=== PATIENT | female | born 1985 | race Caucasian/White ===

== ENCOUNTER 2020-09-12 15:31 | Day surgery (SDC) | payer BC, SELFPAY ==
[2020-09-12 16:27] VITALS: BMI 42.7
[2020-09-12] MEDS ORDERED: hydrALAZINE 20 MG/ML VIAL SLOW IVP PRN (17:07)
--- NOTE | 2020-09-12 17:47 | PDOC.FPROB ---
FMR OB H&P: HPI - History of Present Illness Chief Complaint: Elevated BP Indentification: 35yo at 35.1wks History of Present Illness: Hina was seen in clinic today for testing and found to have a SBP in the 140s x2. NST was reactive and BPP score 8/8. She is receiving testing d/t AMA, pregestational prediabetes and now A1GDM, and obesity. She denies a hx of HTN prior to . She endorses b/l LE and UE edema. She denies LAZO, vision changes, RUQ pain, dyspnea/SOB, CP. Primary Care Physician: JO-ANN - Dr. 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 Last night, someone they know was found on the property. - Family History Family History: Endorses fam hx of HTN. FMR OB H&P: Medications - Current Home Medications: Medication Instructions Recorded Confirmed Type Aspirin [Aspirin EC] 81 mg PO DAILY 09/12/20 09/12/20 History Pnv No.95/Ferrous Fum/Folic AC 1 tablet PO DAILY 09/12/20 09/12/20 History [ Tablet] Allergies/Adverse Reactions: Allergies Allergy/AdvReac Type Severity Reaction Status Date / Time No Known Allergies Allergy Verified 09/12/20 16:20 FMR OB H&P: ROS - Review of Systems General: denies: fever/chills Eyes: denies: vision changes, double vision, scotomas, floaters ENT: denies: nasal congestion, sore throat Cardiovascular: denies: chest pain Respiratory: denies: cough, congestion Gastrointestinal: denies: abdominal pain, nausea, vomiting, diarrhea Genitourinary (Female): denies: dysuria, vaginal discharge, vaginal bleeding, contractions, vaginal pressure Musculoskeletal: reports: swelling (UE and LE b/l) Neurologic: denies: headache Hematologic/Lymphatic: denies: prolonged or excessive bleeding FMR OB H&P: Vital Signs - Heart Tones Baseline: 140 Variability: moderate Acceleration: present Deceleration: absent [place] contractions every: N/A FMR OB H&P: Physical Exam - Physical Exam General: NAD, awake, alert and oriented HEENT: normocephalic and atraumatic, EOMI, grossly normal vision, grossly normal hearing Neck: supple, FROM Chest: non-tender to palpation Heart: RRR, normal S1/S2, no murmurs/rubs/gallops, pulses present (2+ dp b/l), other (Non-pitting edema of b/l LE and UE) General: CTAB, no respiratory distress, good air movement Abdomen: soft, gravid, non-tender, bowel sound present Musculoskeletal: pulses present, FROM in all four extremities Neurological: no focal deficit Skin: no rash Lymphatic: no purpura, no petechia Psychiatric: intact recent and remote memory, good judgement and insight, normal mood and affect - Pelvic Exam Membranes: Intact FMR OB H&P: A/P Disposition: This is a 35yo at 35.1wks who was sent from clinic for two elevated SBP in the 140s. Elevated Blood Pressures - SBP 140s x2 at clinic - On arrival, BPs 150-155/81-107. Continue monitoring BPs prn Hydralazine if severe range - Pre-e labs ordered - Continuous FM. Strip reassuring with baseline 140, moderate variability, accels, no decels - B/l UE and LE edema Monitor for sxs sIUP - at 35.1wks - testing for reasons listed below Today, NST reactive and BPP 8/8 - Continuous FM A1GDM - A1c 5.8 AMA - 35yo Obesity Discussion: Date/Time: 09/12/201746 This H&P was discussed with Dr. Rody Fisher and Dr. Judie Horan who agree with the above documentation and plan. Addendum - Attending - Attending Attestation Date/Time: 09/12/20 408 I personally evaluated the patient and discussed the management with resident team I agree with the History, Examination, Assessment and Plan documented above with any addition or exceptions noted below. Obs for at least 4 hours. Monitor BP q 15 mins. Remains asymptomatic. Labs pending. heart tones reactive. BPP 8/8 today. ABrayMD
[2020-09-12 17:57] LABS: #Basophils 0.1 thou/uL (0.0-0.2); #Eosinphils 0.1 thou/uL (0.0-0.7); #Lymphocytes 2.8 thou/uL (1.20-3.40); #Monocytes 0.5 thou/uL (0.11-0.59); #Neutrophils 8.5 thou/uL (1.40-6.50); %Basophils 0.6 % (0.0-1.0); %Eosinophils 0.4 % (0.0-10.0); %Lymphocytes 23.2 % (21.0-51.0); %Monocytes 4.4 % (0.0-10.0); %Neutrophils 71.3 % (42.0-75.0); Hemoglobin 11.7 g/dL (12.0-16.0); Mean Corpuscular HGB CONC 33.6 g/dL (32.0-36.0); Mean Corpuscular Hemoglobin 30.7 pg (27.0-31.0); Mean Corpuscular Volume 91.5 fL (78.0-98.0); Mean Platelet Volume 9.5 fL (7.4-10.4); Platelet Count 219 thou/uL (130-400); RBC Distribution Width 12.5 % (11.5-14.5); Red Blood Cell (RBC) Count 3.82 mill/uL (4.20-5.40); White Blood Cell (WBC) Count 11.9 thou/uL (4.8-10.8)
[2020-09-12 18:18] LABS: ALT (SGPT) 19 U/L (8-55); AST (SGOT) 19 U/L (5-34); Alkaline Phosphatase 113 U/L (40-110); Anion Gap 14 mmol/L (10-20); BUN (Urea Nitrogen) 8 mg/dL (7.0-18.7); Bilirubin, Total 0.2 mg/dL (0.2-1.2); Calc. Creatinine Clearance 189 mL/min (70-130); Calcium 8.8 mg/dL (7.8-10.44); Carbon Dioxide 18 mmol/L (22-29); Chloride 107 mmol/L (98-107); Globulin 3.2 g/dL (2.4-3.5); Glucose 78 mg/dL (70-105); Protein, Total 6.2 g/dL (6.0-8.3); Sodium 135 mmol/L (136-145)
[2020-09-12 18:37] LABS: Creatinine, Urine 201.46 mg/dL (47-110)
--- NOTE | 2020-09-12 21:07 | PDOC.BPN ---
<Hannah Mariee - Last Filed: 09/12/20 21:04> - Brief Progress Note Encounter Date: 09/12/20 Encounter Time: 20:00 Patient's pre-E labs WNL. Patient diagnosed with gHTN. Patient discharged. Education given about diagnosis and L&D precautions given. If BP > 160/110, come to L&D. Pre-E education provided, encouraged patient to be aware of developing symptoms. Take BP at home TID. Will need to be followed up weekly at [facility] for weekly labs, weekly sonos, and weekly visits. All questions answered. Plan discussed with Dr. Horan, attending. <Judie Horan - Last Filed: 09/13/20 01:51> - Brief Progress Note Attending Note: Risk and complications discussed. Patient to call first thing in the morning to schedule follow up later this week. Will need FLM steroids if appears deliver needed prior to 37 wks. Trend weekly labs. Consider follow up growth with next weeks testing. Patient to get BP cuff and monitor TID at home. Will need delivery at 37 wks. Ramesh
== END 2020-09-12 21:05 | disposition home or self-care (01) ==
LOC: L&D/OP 15:31
PROVIDERS: ATTEND Student in an Organized Health Care Education/Training Program
DX: O99.891 Other specified diseases and conditions complicating pregnancy (principal); R03.0 Elevated blood-pressure reading, without diagnosis of hypertension; O24.410 Gestational diabetes mellitus in pregnancy, diet controlled; O99.213 Obesity complicating pregnancy, third trimester; E66.9 Obesity, unspecified; O09.513 Supervision of elderly primigravida, third trimester; O99.333 Smoking (tobacco) complicating pregnancy, third trimester; F17.290 Nicotine dependence, other tobacco product, uncomplicated; Z3A.35 35 weeks gestation of pregnancy; Z79.82 Long term (current) use of aspirin
CPT/HCPCS: 36415; 80053; 82570; 84156; 85025

== ENCOUNTER 2020-09-19 15:24 | Inpatient (IN) | payer OTHER, SELFPAY ==
[~2020-09-19 15:24] MED LIST: ePHEDrine 50 MG/ML VIAL ONE
--- NOTE | 2020-09-19 15:34 | PDOC.FPRHP ---
- History of Present Illness Chief Complaint: elevated BP History of Present Illness: 35yo @ 36.1 wks by 10.6wk lisa presents from clinic for evaluation of elevated BP. In clinic SBP 158, 161, 162. - Allergies/Adverse Reactions Allergies Allergy/AdvReac Type Severity Reaction Status Date / Time No Known Allergies Allergy Verified 09/12/20 16:20 - Home Medications Medication Instructions Recorded Confirmed Type Aspirin [Aspirin EC] 81 mg PO DAILY 09/12/20 09/12/20 History Pnv No.95/Ferrous Fum/Folic AC 1 tablet PO DAILY 09/12/20 09/12/20 History [ Tablet] - History PMHx: PSHx: FHx: Social: - Vital signs BP: [] HR: [] RR: [] Tmax: [] Pox: []% on [] Wt: [] FMR H&P: Upper Level - Plan Date/Time: 09/19/20 1529 I, [], have evaluated this patient and agree with findings/plan as outlined by architecture intern resident. Pertinent changes/additions are listed here.
--- NOTE | 2020-09-19 15:36 | PDOC.FPROB ---
FMR OB H&P: HPI - History of Present Illness Chief Complaint: Elevated BP History of Present Illness: 35yo @ 36.1 wks by 10.6wk lisa presents from clinic for evaluation of elevated BP. SBPs in clinic: 158, 161, 162. Pt has been checking her BP at home and they are normally systolic in 140s. Currently asymptomatic. She is taking her PNV and aspirin as prescribed. Has a history of non-compliance and has missed some of her routine appointments and lab work. +FM, Denies LOF, vaginal bleeding, LAZO, vision change, abdominal pain, ctx. C/o swelling of her feet. Primary Care Physician: LENA Washington FMR OB H&P: Current - Care : 1 Para: 0 Gestational age: 36.1 Due date: 10/16/20 Dating Criteria: 10.6 wk lisa Course/Complications: gHTN, A1GDM, AMA, obesity - OB Labs Blood type: O RH: positive Antibody Screen: negative HIV: negative RPR: unknown HepBsAg: negative Rubella: immune Gonorrhea: negative Chlamydia: negative A1c: 5.8 H&H: 11.7/34.9 on . 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 NILM with negative HR-HPV - Surgical History Sx History: tonsillectomy, adenoidectomy - Social History Social History: vapes nicotine, no alcohol or drugs - Family History Family History: HTN FMR OB H&P: Medications - Current Home Medications: Medication Instructions Recorded Confirmed Type Aspirin [Aspirin EC] 81 mg PO DAILY 09/12/20 09/19/20 History Pnv No.95/Ferrous Fum/Folic AC 1 tablet PO DAILY 09/12/20 09/19/20 History [ Tablet] Allergies/Adverse Reactions: Allergies Allergy/AdvReac Type Severity Reaction Status Date / Time No Known Allergies Allergy Verified 09/19/20 15:50 FMR OB H&P: ROS - Review of Systems General: denies: fever/chills Eyes: denies: vision changes ENT: denies: nasal congestion Cardiovascular: reports: palpitation, edema. denies: chest pain Respiratory: denies: cough, congestion, shortness of breath Gastrointestinal: denies: abdominal pain, nausea, vomiting Genitourinary (Female): denies: dysuria, vaginal bleeding, contractions Musculoskeletal: denies: pain Neurologic: denies: headache Integumentary: denies: rash Endocrine: denies: polyuria Hematologic/Lymphatic: denies: prolonged or excessive bleeding FMR OB H&P: Vital Signs - Maternal Vital signs: BP 140/76, 139/69, HR 70, 61 - Heart Tones Baseline: 140 Variability: moderate Acceleration: present Deceleration: absent Category: category 1 FMR OB H&P: Physical Exam - Physical Exam General: NAD, awake, alert and oriented HEENT: normocephalic and atraumatic, no scleral icterus, grossly normal vision, grossly normal hearing Neck: supple, FROM Heart: RRR, normal S1/S2 General: CTAB, no respiratory distress Abdomen: soft, gravid, non-tender Musculoskeletal: pulses present, no atrophy Neurological: DTR +2, no focal deficit Skin: no rash, no jaundice Lymphatic: no unusual bruising or bleeding Psychiatric: intact recent and remote memory, good judgement and insight, normal mood and affect FMR OB H&P: A/P Discussion: Date/Time: 09/19/20 6494 This is a 35yo at 36.1wks who was sent from clinic for elevated BP #gHTN r/o pre-E - SBP 158, 161 in clinic - On arrival, BP 140/76, 139/69, asymptomatic - pending Urine Pr/Cr, CBC, CMP - pending US: BPP, growth - Continue monitoring BPs, if no severe range or no severe features, will discharge home - has mIOL scheduled for 09/25 sIUP - FHT: Cat 1 - pending GBS - Continuous FM A1GDM - A1c 5.8 - FBG at home 82-98 AMA, Obesity - aware This H&P was discussed with Dr. Ibrahim and Dr. Fernandes who agree with the above documentation and plan. Addendum - Attending - Attending Attestation Date/Time: 09/20/20 8363 I personally evaluated the patient and discussed the management with the team. I agree with the History, Examination, Assessment and Plan documented above with any addition or exceptions noted below. No severe symptoms, feeling good. DTRs 2+, no clonus. Await monitoring for BP's and induce if severe pressures. Complete preE workup.
[2020-09-19 15:53] VITALS: BMI 42.3
[2020-09-19] MEDS ORDERED: hydrALAZINE 20 MG/ML VIAL SLOW IVP PRN (16:21)
--- NOTE | 2020-09-19 17:02 | ULT ---
LIMITED OBSTETRICAL ULTRASOUND FOR BIOPHYSICAL PROFILE INDICATION: Biophysical profile and growth TECHNIQUE: Grayscale, M-mode Doppler, color Doppler and spectral Doppler images were obtained. Biophy sical profile was submitted by the health information technician. Imaging is focused on the clinical indication. COMPARISON: None GESTATION: Number of gestations: Single. Presentation: Cephalic. heart rate: 158 bpm. Placental location: Posterior and right lateral wall Previa: Not evaluated Cervical length: Not well seen STEPHANIE: 10.5 cm. Biophysical profile: tone: 2 out of 2. breathin out of 2 movements: 2 out of 2 Amniotic fluid level: 2 out of 2 The biparietal diameter measured 9.19 cm giving estimated gestational age of 37 weeks 2 days. (87th p ercentile). The head circumference was 32.66 cm giving estimated gestational age of 37 weeks and 0 days. (42nd pe rcentile). The abdominal circumference is 31.16 cm giving estimated gestational age of 35 weeks and 1 day (30th percentile) The femoral length was 7.03 cm giving estimated gestational age of 36 weeks and 0 days (43rd percenti le) Estimated weight is 2768 g (42nd percentile) The estimated gestational age by ultrasound is 36 weeks and 3 days estimated due date April 13, 2021. The clinical age is 36 weeks and 1 day with estimated October 16, 2020. The maternal anatomy was not assessed. The uterus and adnexa were not evaluated. IMPRESSION: 1. Biophysical profile of 8 out of 8. 2. Size and dates as above.
[2020-09-19 17:29] LABS: #Basophils 0.1 thou/uL (0.0-0.2); #Lymphocytes 2.8 thou/uL (1.20-3.40); #Monocytes 0.5 thou/uL (0.11-0.59); #Neutrophils 7.7 thou/uL (1.40-6.50); %Basophils 0.7 % (0.0-1.0); %Eosinophils 0.3 % (0.0-10.0); %Lymphocytes 25.3 % (21.0-51.0); %Monocytes 4.5 % (0.0-10.0); %Neutrophils 69.2 % (42.0-75.0); Hemoglobin 12.6 g/dL (12.0-16.0); Mean Corpuscular HGB CONC 33.8 g/dL (32.0-36.0); Mean Corpuscular Hemoglobin 30.4 pg (27.0-31.0); Mean Corpuscular Volume 89.7 fL (78.0-98.0); Mean Platelet Volume 9.7 fL (7.4-10.4); Platelet Count 222 thou/uL (130-400); RBC Distribution Width 12.3 % (11.5-14.5); Red Blood Cell (RBC) Count 4.16 mill/uL (4.20-5.40); White Blood Cell (WBC) Count 11.2 thou/uL (4.8-10.8)
[2020-09-19 17:54] LABS: ALT (SGPT) 16 U/L (8-55); AST (SGOT) 15 U/L (5-34); Albumin 3.2 g/dL (3.5-5.0); Alkaline Phosphatase 134 U/L (40-110); Anion Gap 15 mmol/L (10-20); BUN (Urea Nitrogen) 7 mg/dL (7.0-18.7); Bilirubin, Total 0.3 mg/dL (0.2-1.2); Calc. Creatinine Clearance 177 mL/min (70-130); Calcium 8.5 mg/dL (7.8-10.44); Carbon Dioxide 19 mmol/L (22-29); Chloride 106 mmol/L (98-107); Globulin 3.2 g/dL (2.4-3.5); Glucose 95 mg/dL (70-105); Potassium 3.8 mmol/L (3.5-5.1); Protein, Total 6.4 g/dL (6.0-8.3); Sodium 136 mmol/L (136-145)
[2020-09-19 18:00] LABS: Creatinine, Urine 335.81 mg/dL (47-110)
[2020-09-19] MEDS ORDERED: Acetaminophen 500 MG TAB PO PRN (19:26)
[2020-09-19] MEDS ORDERED: Lidocaine 1% (PF) 30 ML VIAL SC PRN (19:26)
[2020-09-19] MEDS ORDERED: NS / Oxytocin 40 units/1000ml 1,000 ML IV PRN (19:26)
[2020-09-19] MEDS ORDERED: Ondansetron PF 4 MG/2 ML Vial IVP PRN (19:26)
[2020-09-19] MEDS ORDERED: Carboprost 250 MCG/ML AMP IM PRN (19:26)
[2020-09-19] MEDS ORDERED: Promethazine HCl 25 MG/ML VIAL IM PRN (19:26)
--- NOTE | 2020-09-19 19:39 | PDOC.LDPN ---
Labor & Delivery Progress Note - Subjective Subjective: comfortable - Objective Abnormal vital signs: elevated BP: 150/91, 146/86, 160/80 General: NAD, resting SVE: closed/thick/high FHT: category 1 [place] contractions every: absent -: This is a 35yo at 36.1wks who was sent from clinic for elevated BP: sIUP @ 36.1 weeks mIOL for pre-eclampsia super-imposed on gHTN Elevated blood pressures with few severe range pressures in clinic, elevated pr/cr ratio of 0.56 today which was wnl at 0.22 one week ago. LFTs, platelets wnl. Symptoms include swelling of hands/feet unchanged over past 2 week, no new symptoms. - admit for induction of labor for pre-eclampsia - administer betamethasone for lung maturity given 36.1 weeks today - continue to monitor BP closely, tx for > 160/110 - monitor for symptoms of pre-eclampsia - SVE @ 1930 closed/thick/high; cat 1 FHT 140/mod/+accels - vertex on bedside sono - cytotec to start induction and recheck SVE 4 hours after placement GBS unknown GBS collected earlier today, will not result prior to induction. - will start GBS ppx after patient has begun to make cervical change A1GDM - A1c 5.8 - FBG at home 82-98 - will start q4hr accuchecks with induction as patient is getting steroids AMA, Obesity - aware Discussed with Dr. Ellis and Dr. Pacheco. Aliyah Horan, , PGY-1
[2020-09-19] MEDS ORDERED: Penicillin G Potassium 5 MILL.UNITS in Sodium Chloride 0.9% 100 ML IVPB SCH (20:00)
[2020-09-19] MEDS: Betamet Acet/Betamet Na Ph 30 MG/5 ML VIAL IM SCH (20:35)
[2020-09-19] MEDS: Misoprostol 100 MCG TAB VAG SCH (20:38)
[2020-09-19 21:05] LABS: Hemoglobin 12.2 g/dL (12.0-16.0); Mean Corpuscular HGB CONC 34.9 g/dL (32.0-36.0); Mean Corpuscular Hemoglobin 31.1 pg (27.0-31.0); Mean Corpuscular Volume 89.1 fL (78.0-98.0); Mean Platelet Volume 10.3 fL (7.4-10.4); Platelet Count 211 thou/uL (130-400); RBC Distribution Width 12.4 % (11.5-14.5); Red Blood Cell (RBC) Count 3.93 mill/uL (4.20-5.40); White Blood Cell (WBC) Count 11.3 thou/uL (4.8-10.8)
[2020-09-19 21:47] LABS: Syphilis Antibody Nonreactive (Nonreactive); Syphilis Antibody Index 0.05 S/CO (<1.00 Non-Reactive)
[2020-09-19] MEDS ORDERED: hydrOXYzine 10 MG TAB PO SCH (22:45)
[2020-09-19 22:57] LABS: HBSAg Index 0.15 S/CO (0-0.99); Hep B Surf Ag Non-Reactive S/CO (NonReactive)
[2020-09-20] MEDS: Misoprostol 100 MCG TAB VAG SCH ×2 (00:48→12:36)
--- NOTE | 2020-09-20 00:52 | PDOC.LDPN ---
Labor & Delivery Progress Note - Subjective Subjective: comfortable, no concerns - Objective Abnormal vital signs: intermittent elevated BP, no severe range BPs General: NAD, resting SVE: cl/th/high FHT: category 1, variability present -: This is a 35yo at 36.1wks who was sent from clinic for elevated BP: sIUP @ 36.2 weeks mIOL for pre-eclampsia super-imposed on gHTN Elevated blood pressures with few severe range pressures in clinic, elevated pr/cr ratio of 0.56 today which was wnl at 0.22 one week ago. LFTs, platelets wnl. Symptoms include swelling of hands/feet unchanged over past 2 week, no new symptoms. - admit for induction of labor for pre-eclampsia - vertex on bedside sono - administer betamethasone for lung maturity given 36.1 weeks at induction time - continue to monitor BP closely, tx for > 160/110 - monitor for symptoms of pre-eclampsia - SVE @ 1930 closed/thick/high; cat 1 FHT 140/mod/+accels - cytotec #1 @ 5 - SVE @ 0045 cl/th/h/posterior/moderately firm, Jasso increased 0 to 1; cat 1 FHT 155/mod/+accels; infrequent ctx, cytotec #2 placed GBS unknown GBS collected earlier today, will not result prior to induction. - will start GBS ppx after patient has begun to make cervical change A1GDM - A1c 5.8 - FBG at home 82-98 - will start q4hr accuchecks with induction as patient is getting steroids AMA, Obesity - aware PLAN: No severe range BP over past 4 hours. Cat [address] cytotec #2. Repeat SVE in 3-4 hours. Continue BP and FHT monitoring. Defer abx at this time, no significant cervical change. Discussed with Dr. Ellis and Dr. Pacheco. Aliyah Horan, DO, PGY-1
--- NOTE | 2020-09-20 05:07 | PDOC.LDPN ---
Labor & Delivery Progress Note - Subjective Subjective: comfortable - Objective Abnormal vital signs: elevated BP: 143/72, 158/81, no severe range BPs General: NAD, resting SVE: FT/25/-3 FHT: category 1, variability present [place] contractions every: intermittently q1-2min -: sIUP @ 36.2 weeks mIOL for pre-eclampsia super-imposed on gHTN Elevated blood pressures with few severe range pressures in clinic, elevated pr/cr ratio of 0.56 today which was wnl at 0.22 one week ago. LFTs, platelets wnl. Symptoms include swelling of hands/feet unchanged over past 2 week, no new symptoms. - admit for induction of labor for pre-eclampsia - vertex on bedside sono prior to induction - administer betamethasone for lung maturity given 36.1 weeks at induction time - continue to monitor BP closely, tx for > 160/110 - monitor for symptoms of pre-eclampsia - SVE @ 1930 closed/thick/high; cat 1 FHT 140/mod/+accels - cytotec #1 @ 5 - SVE @ 0045 cl/th/h/posterior/moderately firm, Jasso increased 0 to 1; cat 1 FHT 155/mod/+accels; infrequent ctx, cytotec #2 placed - SVE @ 0445 FT/25/-3/mid position/moderately firm, Jasso 2; cat 1 FHT GBS unknown GBS collected earlier today, will not result prior to induction. - will start GBS ppx after patient has begun to make cervical change A1GDM - A1c 5.8 - FBG at home 82-98 - will start q4hr accuchecks with induction as patient is getting steroids AMA, Obesity - aware PLAN: BP elevated without severe range BP over past 4 hours. Cat 1 strip. Ctx irregular, runs of q1-2 min ctx followed periods of ctx > 10 min [address] Will not place additional cytotec at this time due to irregular ctx pattern. Unable to place balloon at this time due to minimal dilation. Jasso score 2, not adequate to start pitocin. Continue BP and FHT monitoring. Defer abx at this time, no significant cervical change. Discussed with Dr. Ellis and to be discussed with Dr. Pacheco. Aliyah Horan, DO, PGY-1
[2020-09-20 07:53] LABS: SARS-CoV-2 MS2 Positive; SARS-CoV-2 N Gene Negative; SARS-CoV-2 S Gene Negative; SARS-CoV-2 by NAA Not Detected (NotDetected); SARS-CoV-2 orf1ab Negative
[2020-09-20] MEDS: Lactated Ringer's 1,000 ML IV SCH (08:03)
--- NOTE | 2020-09-20 08:53 | PDOC.LDPN ---
Labor & Delivery Progress Note - Subjective Subjective: comfortable - Objective Vital signs reviewed and normal: yes General: NAD, resting Uterine fundus: non tender SVE: /50/-3 FHT: category 1, variability present [place] contractions every: 1-3min -: sIUP @ 36.2 weeks mIOL for pre-eclampsia super-imposed on gHTN Elevated blood pressures with severe range pressures, elevated pr/cr ratio of 0.56, LFTs, platelets wnl. - vertex on bedside sono prior to induction - betamethasone given x1, scheduled for second dose - continue to monitor BP and symptoms closely, tx for > 160/110 - SVE @ 1930 closed/thick/high; cat 1 FHT 140/mod/+accels - cytotec #1 @ 2045 - SVE @ 0045 cl/th/h/posterior/moderately firm, Jasso increased 0 to 1; cat 1 FHT, cytotec #2 placed - SVE @ 0445 FT/25/-3/mid position/moderately firm, Jasso 2; cat 1 FHT - SVE @ 0830 1/50/-3/ mid-position/soft, Jasso 5 ; FHT Cat 1 - ctx q1-3min, will wait to place next cytotec until brett less frequently, will consider balloon when cervix favorable for placement GBS unknown GBS collected earlier today, will not result prior to induction. - will start GBS ppx after patient has begun to make cervical change A1GDM - A1c 5.8 - FBG at home 82-98 - q4hr accuchecks, pt receiving steroids AMA, Obesity - aware Addendum - Attending - Attending Attestation Date/Time: 09/20/20 6931 I personally evaluated the patient and discussed the management with the team. I agree with the History, Examination, Assessment and Plan documented above with any addition or exceptions noted below.
[2020-09-20] MEDS ORDERED: Calcium Gluc 4.6 MEQ/10 ML (100 MG/ML) SLOW IVP PRN (12:04)
[2020-09-20] MEDS ORDERED: Magnesium Sulfate 20 gm/500 ml 20 GM/500 ML BAG ONE (12:05)
[2020-09-20] MEDS ORDERED: Magnesium Sulfate 20 GM/WATER 500 ML BAG IVPB SCH (12:15)
[2020-09-20] MEDS: Magnesium Sulfate 20 gm/500 ml 20 GM/500 ML BAG IVPB SCH ×2 (12:35→20:12)
--- NOTE | 2020-09-20 13:57 | PDOC.LDPN ---
Labor & Delivery Progress Note - Subjective Subjective: comfortable - Objective Vital signs reviewed and normal: yes Abnormal vital signs: SBP 158, 152 General: NAD, resting Uterine fundus: non tender SVE: 1/50/-3 FHT: category 1, variability present [place] contractions every: 3-4min -: mIOL for pre-eclampsia super-imposed on gHTN sIUP @ 36.2 weeks - severe features: SBP>160 x 2 - U pr/cr ratio of 0.56, LFTs, platelets wnl. - vertex on bedside sono prior to induction - betamethasone given x1, scheduled for second dose - continue to monitor BP and symptoms closely, tx for > 160/110 - SVE @ 1930 closed/thick/high; cat 1 FHT 140/mod/+accels - cytotec #1 @ 2045 - SVE @ 0045 cl/th/h/posterior/moderately firm, Jasso increased 0 to 1; cat 1 FHT, cytotec #2 placed - SVE @ 0445 FT/25/-3/mid position/moderately firm, Jasso 2; cat 1 FHT - SVE @ 0830 1/50/-3/ mid-position/soft, Jasso 5 ; FHT Cat 1 - SVE @ 1215 1/50/-3, FHT: Cat 1, cytotec #3 placed - pt is interested in getting epidural - mag started, q1h reflex checks, nurse to notify physician if urine output <30mL/hr GBS unknown - GBS collected, will not result prior to induction - will start GBS ppx after patient has begun to make cervical change A1GDM - A1c 5.8 - FBG at home 82-98 - q4hr accuchecks, pt receiving steroids AMA, Obesity - aware Addendum - Attending - Attending Attestation Date/Time: 09/20/20 7675 I personally evaluated the patient and discussed the management with the team. Pit vs balloon at next check. I agree with the History, Examination, Assessment and Plan documented above with any addition or exceptions noted below.
--- NOTE | 2020-09-20 14:55 | ULT ---
LIMITED OBSTETRICAL ULTRASOUND FOR BIOPHYSICAL PROFILE INDICATION: Biophysical profile and growth TECHNIQUE: Grayscale, M-mode Doppler, color Doppler and spectral Doppler images were obtained. Biophy sical profile was submitted by the ct scan technician. Imaging is focused on the clinical indication. COMPARISON: None GESTATION: Number of gestations: Single. Presentation: Cephalic. heart rate: 158 bpm. Placental location: Posterior and right lateral wall Previa: Not evaluated Cervical length: Not well seen STEPHANIE: 10.5 cm. Biophysical profile: tone: 2 out of 2. breathin out of 2 movements: 2 out of 2 Amniotic fluid level: 2 out of 2 The biparietal diameter measured 9.19 cm giving estimated gestational age of 37 weeks 2 days. (87th p ercentile). The head circumference was 32.66 cm giving estimated gestational age of 37 weeks and 0 days. (42nd pe rcentile). The abdominal circumference is 31.16 cm giving estimated gestational age of 35 weeks and 1 day (30th percentile) The femoral length was 7.03 cm giving estimated gestational age of 36 weeks and 0 days (43rd percenti le) Estimated weight is 2768 g (42nd percentile) The estimated gestational age by ultrasound is 36 weeks and 3 days estimated due date April 13, 2021. The clinical age is 36 weeks and 1 day with estimated October 16, 2020. The maternal anatomy was not assessed. The uterus and adnexa were not evaluated. IMPRESSION: 1. Biophysical profile of 8 out of 8. 2. Size and dates as above. Transcribed Date/Time: 09/20/2020 2:55 PM
[2020-09-20] MEDS ORDERED: Butorphanol Tartrate 1 MG/ML VIAL SLOW IVP PRN (17:12)
[2020-09-20] MEDS ORDERED: Butorphanol Tartrate 1 MG/ML VIAL ONE (17:15)
--- NOTE | 2020-09-20 17:28 | PDOC.LDPN ---
Labor & Delivery Progress Note - Subjective Subjective: comfortable, no concerns - Objective Abnormal vital signs: systolic BP in 140s in last 4 hours, no severe range pressures General: NAD, resting, breathing through contractions, other (reflexes 2+ in up per extremities) Uterine fundus: non tender Dilation: 1 Effacement: 50% Station: -2 FHT: category 1, variability present [place] contractions every: 5 min Other exam findings: bloody show on SVE Procedures: Cook balloon placed at 1645 Plan: continue plan of care -: mIOL for pre-eclampsia super-imposed on gHTN sIUP @ 36.2 weeks - severe features: SBP>160 x 2 - U pr/cr ratio of 0.56, LFTs, platelets wnl. - vertex on bedside sono prior to induction - betamethasone given x1, scheduled for second dose - continue to monitor BP and symptoms closely, tx for > 160/110 - SVE @ 1930 closed/thick/high; cat 1 FHT 140/mod/+accels - cytotec #1 @ 2045 - SVE @ 0045 cl/th/h/posterior/moderately firm, Jasso increased 0 to 1; cat 1 FHT, cytotec #2 placed - SVE @ 0445 FT/25/-3/mid position/moderately firm, Jasso 2; cat 1 FHT - SVE @ 0830 1/50/-3/ mid-position/soft, Jasso 5 ; FHT Cat 1 - SVE @ 1215 1/50/-3, FHT: Cat 1, cytotec #3 placed - SVE @ 1630 1/50/-2, FHT Cat 1; Jasso 6, Balloon placed at 1645 - pt is interested in getting epidural once able - mag started, q4h checks, nurse to notify physician if urine output <30mL/hr GBS unknown - GBS collected, will not result prior to induction - will start GBS ppx with Penicillin once Pitocin started A1GDM - A1c 5.8 - FBG at home 82-98 - q4hr accuchecks, pt receiving steroids AMA, Obesity - aware Addendum - Attending - Attending Attestation Date/Time: 09/21/20 0931 Sterile cook catheter placed under direct visualization. Inflated to 60/60. Patient tolerated well.
[2020-09-20] MEDS: Betamet Acet/Betamet Na Ph 30 MG/5 ML VIAL IM SCH (20:30)
[2020-09-20] MEDS ORDERED: NS w/ Oxytocin 30 units 500 ML IVPB SCH (21:00)
--- NOTE | 2020-09-20 21:00 | PDOC.LDPN ---
Labor & Delivery Progress Note - Subjective Subjective: comfortable - Objective Vital signs reviewed and normal: yes Abnormal vital signs: No severe range BPs General: NAD, resting Uterine fundus: non tender SVE: 1 Effacement: 50% Station: -2 FHT: category 1 [place] contractions every: 3-4 -: mIOL for pre-eclampsia super-imposed on gHTN sIUP @ 36.2 weeks - severe features: SBP>160 x 2 - U pr/cr ratio of 0.56, LFTs, platelets wnl. - vertex on bedside sono prior to induction - betamethasone given x1, scheduled for second dose - continue to monitor BP and symptoms closely, tx for > 160/110 - SVE @ 1930 closed/thick/high; cat 1 FHT 140/mod/+accels - cytotec #1 @ 2045 - SVE @ 0045 cl/th/h/posterior/moderately firm, Jasso increased 0 to 1; cat 1 FHT, cytotec #2 placed - SVE @ 0445 FT/25/-3/mid position/moderately firm, Jasso 2; cat 1 FHT - SVE @ 0830 1/50/-3/ mid-position/soft, Jasso 5 ; FHT Cat 1 - SVE @ 1215 1/50/-3, FHT: Cat 1, cytotec #3 placed - SVE @ 1630 1/50/-2, FHT Cat 1; Jasso 6, Balloon placed at 1645 - SVE @ 2030 1/50/-2, FHT: Cat 1, baseline 130, Balloon in place, pit started, cx q 3-4 min - pt is interested in getting epidural once able - mag started, 2029 mag check: * denies LAZO, SOB, CP, Abd pain * UO: ~ 800 cc over 4 hours * PE: lungs CTAB, RRR, abd nontender, 2+ DTRs bilaterally * continue mag with q 4 hr checks, monitor BP GBS unknown - GBS collected, will not result prior to induction - will start Penicillin for GBS ppx now A1GDM - A1c 5.8 - FBG at home 82-98 - q4hr accuchecks, pt receiving steroids AMA, Obesity - aware
--- NOTE | 2020-09-21 00:57 | PDOC.LDPN ---
Labor & Delivery Progress Note - Subjective Subjective: comfortable - Objective Vital signs reviewed and normal: yes Abnormal vital signs: No severe range BPs General: NAD, resting Uterine fundus: non tender Dilation: 2 Effacement: 75% Station: -2 FHT: category 1 -: mIOL for pre-eclampsia super-imposed on gHTN sIUP @ 36.3 weeks - severe features: SBP>160 x 2 - U pr/cr ratio of 0.56, LFTs, platelets wnl. - vertex on bedside sono prior to induction - betamethasone given x2 - continue to monitor BP and symptoms closely, tx for > 160/110 - SVE @ 1930 closed/thick/high; cat 1 FHT 140/mod/+accels - cytotec #1 @ 2045 - SVE @ 0045 cl/th/h/posterior/moderately firm, Jasso increased 0 to 1; cat 1 FHT, cytotec #2 placed - SVE @ 0445 FT/25/-3/mid position/moderately firm, Jasso 2; cat 1 FHT - SVE @ 0830 1/50/-3/ mid-position/soft, Jasso 5 ; FHT Cat 1 - SVE @ 1215 1/50/-3, FHT: Cat 1, cytotec #3 placed - SVE @ 1630 1/50/-2, FHT Cat 1; Jasso 6, Balloon placed at 1645 - SVE @ 2030 1/50/-2, FHT: Cat 1, baseline 130, Balloon in place, pit started, cx q 3-4 min - SVE @ 0020 2/75/-2, FHT: Cat 1, baseline 130, balloon in place, pit at 10, cx q 3-4 min - will continue to increase pit as tolerated - pt is interested in getting epidural once able - mag started @ 1630 on 16 - Mag check at 0020 * denies LAZO, SOB, CP, Abd pain * UO: ~ 560 cc over 4 hours * PE: lungs CTAB, RRR, abd nontender, 2+ DTRs bilaterally * continue mag with q 4 hr checks, monitor BP GBS unknown - GBS collected, will not result prior to induction - Penicillin x1 given, will start 2nd dose soon A1GDM - A1c 5.8 - FBG at home 82-98 - glucose: 135 - q4hr accuchecks, pt receiving steroids AMA, Obesity - aware
[2020-09-21] MEDS: Penicillin G 2.5 MILL.units 2.5 MILL.UNITS in Premix Bag 1 BAG IVPB SCH ×4 (01:25→20:35)
[2020-09-21] MEDS: Lactated Ringer's 1,000 ML IV SCH ×2 (01:33→22:28)
[2020-09-21] MEDS: hydrALAZINE 20 MG/ML VIAL SLOW IVP PRN (01:58)
--- NOTE | 2020-09-21 04:55 | PDOC.LDPN ---
Labor & Delivery Progress Note - Subjective Subjective: comfortable - Objective Abnormal vital signs: Severe range of 167/79 General: NAD, resting Uterine fundus: non tender Dilation: 2 Effacement: 75% Station: -2 FHT: category 1 [place] contractions every: 2-3 -: mIOL for pre-eclampsia super-imposed on gHTN sIUP @ 36.3 weeks - severe features: SBP>160 x 2 - U pr/cr ratio of 0.56, LFTs, platelets wnl. - vertex on bedside sono prior to induction - betamethasone given x2 - continue to monitor BP and symptoms closely, tx for > 160/110 - SVE @ 1930 closed/thick/high; cat 1 FHT 140/mod/+accels - cytotec #1 @ 2045 - SVE @ 0045 cl/th/h/posterior/moderately firm, Jasso increased 0 to 1; cat 1 FHT, cytotec #2 placed - SVE @ 0445 FT/25/-3/mid position/moderately firm, Jasso 2; cat 1 FHT - SVE @ 0830 1/50/-3/ mid-position/soft, Jasso 5 ; FHT Cat 1 - SVE @ 1215 1/50/-3, FHT: Cat 1, cytotec #3 placed - SVE @ 1630 1/50/-2, FHT Cat 1; Jasso 6, Balloon placed at 1645 - SVE @ 2030 1/50/-2, FHT: Cat 1, baseline 130, Balloon in place, pit started, cx q 3-4 min - SVE @ 0020 2/75/-2, FHT: Cat 1, baseline 130, balloon in place, pit at 10, cx q 3-4 min - SVE @ 0430 2/75/-2, FHT: Cat 1, baseline 120, balloon removed due to [address], pit at 16, cx q 2-3 min - will continue to increase pit as tolerated - pt is interested in getting epidural once able - mag started @ 1630 on 09/20 - Mag check at 0020 * endorses change in vision when severe range pressure was recorded, pt was given hydralazine and BP improved as did symptoms; denies current LAZO, CP, Abd pain, change in vision * Severe range pressure of 167/79, given hydralazine * UO: ~ 730 cc over 4 hours * PE: lungs CTAB, RRR, abd nontender, 2+ DTRs bilaterally * continue mag with q 4 hr checks, monitor BP GBS unknown - GBS collected, will not result prior to induction - Penicillin x2 given, will give 3rd dose soon A1GDM - A1c 5.8 - FBG at home 82-98 - glucose: 135, 137 - q4hr accuchecks, pt receiving steroids AMA, Obesity - aware
[2020-09-21] MEDS: Magnesium Sulfate 20 gm/500 ml 20 GM/500 ML BAG IVPB SCH ×2 (06:09→23:36)
[2020-09-21] MEDS ORDERED: HumaLOG 300 UNITS/3 ML VIAL SC SCH (09:15)
--- NOTE | 2020-09-21 09:26 | PDOC.LDPN ---
Labor & Delivery Progress Note - Subjective Subjective: comfortable - Objective Vital signs reviewed and normal: yes General: NAD, resting Uterine fundus: non tender SVE: 3/50/-3 FHT: category 1, variability present [place] contractions every: irregular AROM: clear fluid -: mIOL for pre-eclampsia super-imposed on gHTN sIUP @ 36.3 weeks - severe features: SBP>160 x 2 - U pr/cr ratio of 0.56, LFTs, platelets wnl. - vertex on bedside sono prior to induction - betamethasone given x2 - continue to monitor BP and symptoms closely, tx for > 160/110 - SVE @ 1930 closed/thick/high; cat 1 FHT 140/mod/+accels - cytotec #1 @ 2045 - SVE @ 0045 cl/th/h/posterior/moderately firm, Jasso increased 0 to 1; cat 1 FHT, cytotec #2 placed - SVE @ 0445 FT/25/-3/mid position/moderately firm, Jasso 2; cat 1 FHT - SVE @ 0830 1/50/-3/ mid-position/soft, Jasso 5 ; FHT Cat 1 - SVE @ 1215 1/50/-3, FHT: Cat 1, cytotec #3 placed - SVE @ 1630 1/50/-2, FHT Cat 1; Jasso 6, Balloon placed at 1645 - SVE @ 2030 1/50/-2, FHT: Cat 1, baseline 130, Balloon in place, pit started, cx q 3-4 min - SVE @ 0020 2/75/-2, FHT: Cat 1, baseline 130, balloon in place, pit at 10, cx q 3-4 min - SVE @ 0430 2/75/-2, FHT: Cat 1, baseline 120, balloon removed due to [address], pit at 16, cx q 2-3 min - SVE @ 0830 3/50/-3, FHT: Cat 1, 125/mod kalli/ +accel. AROM- clear fluid - on pitocin for 12 hours, not feeling contractions, sleeping, will do 1 hour off pit - pt is interested in getting epidural once able - mag started @ 1630 on 09/20, continue q4h mag checks GBS unknown - GBS collected, will not result prior to induction - Penicillin given A1GDM - A1c 5.8 - FBG at home 82-98 - glucose goal 70-126, humalog for treatment - q4hr accuchecks, pt receiving steroids AMA, Obesity - aware Addendum - Attending - Attending Attestation Date/Time: 09/21/20 5461 I personally evaluated the patient and discussed the management with the team. I agree with the History, Examination, Assessment and Plan documented above with any addition or exceptions noted below. Decrease mag to 1 hour. AROM performed after discussing r/b/a/i. Essentially she has had a protracted induction, including cytotec, balloon, and pitocin with minimal change. She voiced agreement. Clear fluid. Check /-3 afterward.
[2020-09-21] MEDS ORDERED: NS w/ Oxytocin 30 units 500 ML ONE (09:31)
[2020-09-21] MEDS ORDERED: DISCONTINUE ALL PREVIOUS NARCOTICS FS SCH (15:15)
[2020-09-21] MEDS ORDERED: Bupivacaine 0.5% 20 ML, fentaNYL Citrate/PF 400 MCG in Sodium Chloride 0.9% 72 ML EPIDURAL SCH (15:15)
--- NOTE | 2020-09-21 15:15 | PDOC.LDPN ---
Labor & Delivery Progress Note - Subjective Subjective: painful contractions - Objective Vital signs reviewed and normal: yes General: NAD Uterine fundus: non tender SVE: 4/80/-2 FHT: category 1, variability present [place] contractions every: 3-4min IUPC placed: yes -: mIOL for pre-eclampsia super-imposed on gHTN sIUP @ 36.3 weeks - severe features: SBP>160 x 2 - U pr/cr ratio of 0.56, LFTs, platelets wnl. - vertex on bedside sono prior to induction - betamethasone given x2 - continue to monitor BP and symptoms closely, tx for > 160/110 - SVE @ 1930 closed/thick/high; cat 1 FHT 140/mod/+accels - cytotec #1 @ 2045 - SVE @ 0045 cl/th/h/posterior/moderately firm, Jasso increased 0 to 1; cat 1 FHT, cytotec #2 placed - SVE @ 0445 FT/25/-3/mid position/moderately firm, Jasso 2; cat 1 FHT - SVE @ 0830 1/50/-3/ mid-position/soft, Jasso 5 ; FHT Cat 1 - SVE @ 1215 1/50/-3, FHT: Cat 1, cytotec #3 placed - SVE @ 1630 1/50/-2, FHT Cat 1; Jasso 6, Balloon placed at 1645 - mag started @ 1630 on 09/20, continue q4h mag checks - SVE @ 2030 1/50/-2, FHT: Cat 1, baseline 130, Balloon in place, pit started, cx q 3-4 min - SVE @ 0020 2/75/-2, FHT: Cat 1, baseline 130, balloon in place, pit at 10, cx q 3-4 min - SVE @ 0430 2/75/-2, FHT: Cat 1, baseline 120, balloon removed due to [address], pit at 16, cx q 2-3 min - SVE @ 0830 3/50/-3, FHT: Cat 1, 125/mod kalli/ +accel. AROM- clear fluid - SVE @ 1100 3/70/-2, IUPC placed - SVE @ 1500 4/80/-2, FHT: Cat 1, ctx q3-4min, MVU 160, pit @ 22u, mag @ 1g/hr - pt is requesting epidural be placed GBS unknown - GBS collected, will not result prior to induction - Penicillin given A1GDM - A1c 5.8 - FBG at home 82-98 - glucose goal 70-126, humalog for treatment - q4hr accuchecks, pt receiving steroids AMA, Obesity - aware
[2020-09-21] MEDS ORDERED: Acetaminophen 325 MG TAB PO PRN (15:57)
[2020-09-21] MEDS ORDERED: Lactated Ringer's 500 ML IV PRN (15:57)
[2020-09-21] MEDS ORDERED: Naloxone HCl 0.4 mg/ml Vial IVP PRN ×2 (15:57)
[2020-09-21] MEDS ORDERED: Promethazine HCl 25 MG/ML VIAL IM PRN (15:57)
[2020-09-21] MEDS ORDERED: diphenhydrAMINE 50 MG/ML VIAL IVP PRN (15:57)
[2020-09-21] MEDS ORDERED: ePHEDrine 50 MG/ML VIAL SLOW IVP PRN (15:57)
[2020-09-21] MEDS ORDERED: Ondansetron PF 4 MG/2 ML Vial IVP PRN (15:57)
[2020-09-21] MEDS ORDERED: Communication Order-Pharmacy FS SCH (16:00)
--- NOTE | 2020-09-21 19:19 | PDOC.LDPN ---
Labor & Delivery Progress Note - Subjective Subjective: comfortable - Objective Vital signs reviewed and normal: yes Abnormal vital signs: Soft pressures of 115/55 following epidural, given ephedrine x3 General: NAD, resting Dilation: 5 Effacement: 75% Station: -2 FHT: category 1 [place] contractions every: q2-3min -: mIOL for pre-eclampsia super-imposed on gHTN sIUP @ 36.3 weeks - severe features: SBP>160 x 2 - U pr/cr ratio of 0.56, LFTs, platelets wnl. - vertex on bedside sono prior to induction - betamethasone given x2 - continue to monitor BP and symptoms closely, tx for > 160/110 - SVE @ 1930 closed/thick/high; cat 1 FHT 140/mod/+accels - cytotec #1 @ 2045 - SVE @ 0045 cl/th/h/posterior/moderately firm, Jasso increased 0 to 1; cat 1 FHT, cytotec #2 placed - SVE @ 0445 FT/25/-3/mid position/moderately firm, Jasso 2; cat 1 FHT - SVE @ 0830 1/50/-3/ mid-position/soft, Jasso 5 ; FHT Cat 1 - SVE @ 1215 1/50/-3, FHT: Cat 1, cytotec #3 placed - SVE @ 1630 1/50/-2, FHT Cat 1; Jasso 6, Balloon placed at 1645 - mag started @ 1630 on 09/20, continue q4h mag checks - SVE @ 2030 1/50/-2, FHT: Cat 1, baseline 130, Balloon in place, pit started, cx q 3-4 min - SVE @ 0020 2/75/-2, FHT: Cat 1, baseline 130, balloon in place, pit at 10, cx q 3-4 min - SVE @ 0430 2/75/-2, FHT: Cat 1, baseline 120, balloon removed due to [address], pit at 16, cx q 2-3 min - SVE @ 0830 3/50/-3, FHT: Cat 1, 125/mod kalli/ +accel. AROM- clear fluid - SVE @ 1100 3/70/-2, IUPC placed - SVE @ 1500 4/80/-2, FHT: Cat 1, ctx q3-4min, MVU 160, pit @ 22u, mag @ 1g/hr - SVE @ 1900 /-2, FHT: Cat 1, ctx q2-3 min; pit @ 26 - Following epidural at 1600, patient experienced soft BPs in the 115/55 with some late decels, given ephedrine with improvement in FHT, now cat 1 - Mag check at 1900 * denies current LAZO, CP, Abd pain, change in vision * UO: >400 cc over 4 hours * PE: lungs CTAB, RRR, abd nontender, 2+ DTRs bilaterally * continue mag with q 4 hr checks, monitor BP GBS unknown - GBS collected, will not result prior to induction - Penicillin given A1GDM - A1c 5.8 - FBG at home 82-98 - glucose goal 70-126, humalog for treatment - q4hr accuchecks, pt receiving steroids AMA, Obesity - aware
[2020-09-21] MEDS: Fentanyl 4 mcg/Bupivacaine 0.1% Cassette 100 ML EPIDURAL SCH (23:18)
[2020-09-22] MEDS: Penicillin G 2.5 MILL.units 2.5 MILL.UNITS in Premix Bag 1 BAG IVPB SCH ×7 (00:42→11:01)
--- NOTE | 2020-09-22 00:50 | PDOC.LDPN ---
Labor & Delivery Progress Note - Subjective Subjective: comfortable - Objective Vital signs reviewed and normal: yes General: NAD Dilation: 6 Effacement: 90% Station: -1 FHT: category 1 [place] contractions every: 3-4 -: mIOL for pre-eclampsia super-imposed on gHTN sIUP @ 36.3 weeks - severe features: SBP>160 x 2 - U pr/cr ratio of 0.56, LFTs, platelets wnl. - vertex on bedside sono prior to induction - betamethasone given x2 - continue to monitor BP and symptoms closely, tx for > 160/110 - SVE @ 1930 closed/thick/high; cat 1 FHT 140/mod/+accels - cytotec #1 @ 2045 - SVE @ 0045 cl/th/h/posterior/moderately firm, Jasso increased 0 to 1; cat 1 FHT, cytotec #2 placed - SVE @ 0445 FT/25/-3/mid position/moderately firm, Jasso 2; cat 1 FHT - SVE @ 0830 1/50/-3/ mid-position/soft, Jasso 5 ; FHT Cat 1 - SVE @ 1215 1/50/-3, FHT: Cat 1, cytotec #3 placed - SVE @ 1630 1/50/-2, FHT Cat 1; Jasso 6, Balloon placed at 1645 - mag started @ 1630 on 09/20, continue q4h mag checks - SVE @ 2030 1/50/-2, FHT: Cat 1, baseline 130, Balloon in place, pit started, cx q 3-4 min - SVE @ 0020 2/75/-2, FHT: Cat 1, baseline 130, balloon in place, pit at 10, cx q 3-4 min - SVE @ 0430 2/75/-2, FHT: Cat 1, baseline 120, balloon removed due to [address], pit at 16, cx q 2-3 min - SVE @ 0830 3/50/-3, FHT: Cat 1, 125/mod kalli/ +accel. AROM- clear fluid - SVE @ 1100 3/70/-2, IUPC placed - SVE @ 1500 4/80/-2, FHT: Cat 1, ctx q3-4min, MVU 160, pit @ 22u, mag @ 1g/hr - SVE @ 1900 5/80/-2, FHT: Cat 1, ctx q2-3 min; pit @ 26 - SVE @ 2300 6/90/-1, FHT: Cat 1, ctx q2-3 min, pit at 30 with inadequate MVUs, will give pit break at this time and restart in 1 hour - Mag check at 2300 * denies current LAZO, CP, Abd pain, change in vision * UO: >400 cc over 4 hours * PE: lungs CTAB, RRR, abd nontender, 2+ DTRs bilaterally * continue mag with q 4 hr checks, monitor BP GBS unknown - GBS collected, will not result prior to induction - Penicillin given A1GDM - A1c 5.8 - FBG at home 82-98 - glucose goal 70-126, humalog for treatment - q4hr accuchecks, pt receiving steroids AMA, Obesity - aware
--- NOTE | 2020-09-22 03:43 | PDOC.LDPN ---
Labor & Delivery Progress Note - Subjective Subjective: comfortable - Objective Vital signs reviewed and normal: yes General: NAD, resting Uterine fundus: non tender Dilation: 7 Effacement: 90% Station: -1 FHT: category 1 [place] contractions every: 5-6 min -: mIOL for pre-eclampsia super-imposed on gHTN sIUP @ 36.3 weeks - severe features: SBP>160 x 2 - U pr/cr ratio of 0.56, LFTs, platelets wnl. - vertex on bedside sono prior to induction - betamethasone given x2 - continue to monitor BP and symptoms closely, tx for > 160/110 - SVE @ 1930 closed/thick/high; cat 1 FHT 140/mod/+accels - cytotec #1 @ 2045 - SVE @ 0045 cl/th/h/posterior/moderately firm, Jasso increased 0 to 1; cat 1 FHT, cytotec #2 placed - SVE @ 0445 FT/25/-3/mid position/moderately firm, Jasso 2; cat 1 FHT - SVE @ 0830 1/50/-3/ mid-position/soft, Jasso 5 ; FHT Cat 1 - SVE @ 1215 1/50/-3, FHT: Cat 1, cytotec #3 placed - SVE @ 1630 1/50/-2, FHT Cat 1; Jasso 6, Balloon placed at 1645 - mag started @ 1630 on 09/20, continue q4h mag checks - SVE @ 2030 1/50/-2, FHT: Cat 1, baseline 130, Balloon in place, pit started, cx q 3-4 min - SVE @ 0020 2/75/-2, FHT: Cat 1, baseline 130, balloon in place, pit at 10, cx q 3-4 min - SVE @ 0430 2/75/-2, FHT: Cat 1, baseline 120, balloon removed due to [address], pit at 16, cx q 2-3 min - SVE @ 0830 3/50/-3, FHT: Cat 1, 125/mod kalli/ +accel. AROM- clear fluid - SVE @ 1100 3/70/-2, IUPC placed - SVE @ 1500 4/80/-2, FHT: Cat 1, ctx q3-4min, MVU 160, pit @ 22u, mag @ 1g/hr - SVE @ 1900 /-2, FHT: Cat 1, ctx q2-3 min; pit @ 26 - SVE @ 2300 /-1, FHT: Cat 1, ctx q2-3 min, pit at 30 with inadequate MVUs, pit break - SVE @ 0100 , FHT: Cat 1, pit was restarted around 0000 - SVE @ 0300 , FHT: Cat 1, ctx q5-6 min, pit at 14 with inadequate MVUs Mag check at 0300 * denies current LAZO, CP, Abd pain, change in vision * UO: ~ 215 cc over 4 hours, will monitor over next 4 hours and consider getting mag level, continues to be asymptomatic with normal PE findings * PE: lungs CTAB, RRR, abd nontender, 2+ DTRs bilaterally * continue mag with q 4 hr checks, monitor BP GBS unknown, adequately treated - GBS collected, will not result prior to induction - Penicillin given A1GDM - A1c 5.8 - FBG at home 82-98 - glucose goal 70-126, humalog for treatment - q4hr accuchecks, pt receiving steroids AMA, Obesity - aware
--- NOTE | 2020-09-22 05:48 | PDOC.LDPN ---
Labor & Delivery Progress Note - Subjective Subjective: comfortable - Objective Vital signs reviewed and normal: yes Abnormal vital signs: No severe range BPs General: NAD Dilation: 7 Effacement: 90% Station: -1 FHT: category 1 [place] contractions every: 5-6 min -: mIOL for pre-eclampsia super-imposed on gHTN sIUP @ 36.3 weeks - severe features: SBP>160 x 2 - U pr/cr ratio of 0.56, LFTs, platelets wnl. - vertex on bedside sono prior to induction - betamethasone given x2 - continue to monitor BP and symptoms closely, tx for > 160/110 - SVE @ 1930 closed/thick/high; cat 1 FHT 140/mod/+accels - cytotec #1 @ 2045 - SVE @ 0045 cl/th/h/posterior/moderately firm, Jasso increased 0 to 1; cat 1 FHT, cytotec #2 placed - SVE @ 0445 FT/25/-3/mid position/moderately firm, Jasso 2; cat 1 FHT - SVE @ 0830 1/50/-3/ mid-position/soft, Jasso 5 ; FHT Cat 1 - SVE @ 1215 1/50/-3, FHT: Cat 1, cytotec #3 placed - SVE @ 1630 1/50/-2, FHT Cat 1; Jasso 6, Balloon placed at 1645 - mag started @ 1630 on 09/20, continue q4h mag checks - SVE @ 2030 1/50/-2, FHT: Cat 1, baseline 130, Balloon in place, pit started, cx q 3-4 min - SVE @ 0020 2/75/-2, FHT: Cat 1, baseline 130, balloon in place, pit at 10, cx q 3-4 min - SVE @ 0430 2/75/-2, FHT: Cat 1, baseline 120, balloon removed due to [address], pit at 16, cx q 2-3 min - SVE @ 0830 3/50/-3, FHT: Cat 1, 125/mod kalli/ +accel. AROM- clear fluid - SVE @ 1100 3/70/-2, IUPC placed - SVE @ 1500 4/80/-2, FHT: Cat 1, ctx q3-4min, MVU 160, pit @ 22u, mag @ 1g/hr - SVE @ 1900 /-2, FHT: Cat 1, ctx q2-3 min; pit @ 26 - SVE @ 2300 , FHT: Cat 1, ctx q2-3 min, pit at 30 with inadequate MVUs, pit break - SVE @ 0100 , FHT: Cat 1, pit was restarted around 0000 - SVE @ 0300 , FHT: Cat 1, ctx q5-6 min, pit at 14 with inadequate MVUs - SVE @ 0500 , FHT: Cat 1, ctx q5-6 min, pit 18, inadequate MVUs of 90, consider GBS unknown, adequately treated - GBS collected, will not result prior to induction - Penicillin given A1GDM - A1c 5.8 - FBG at home 82-98 - glucose goal 70-126, humalog for treatment - q4hr accuchecks, pt receiving steroids AMA, Obesity - aware
[2020-09-22] MEDS: Fentanyl 4 mcg/Bupivacaine 0.1% Cassette 100 ML EPIDURAL SCH (06:41)
[2020-09-22] MEDS: Misoprostol 100 MCG TAB VAG SCH ×8 (07:14→11:07)
[2020-09-22] MEDS: Lactated Ringer's 1,000 ML IV SCH ×3 (07:18→11:07)
[2020-09-22] MEDS: Betamet Acet/Betamet Na Ph 30 MG/5 ML VIAL IM SCH (07:19)
--- NOTE | 2020-09-22 07:20 | PDOC.LDPN ---
Labor & Delivery Progress Note - Subjective Subjective: comfortable - Objective Vital signs reviewed and normal: yes Abnormal vital signs: SBP 160 x1 General: NAD Uterine fundus: non tender SVE: 790/-1 FHT: category 1, variability present (periods of minimal) [place] contractions every: 8min AROM: clear fluid -: mIOL for pre-eclampsia super-imposed on gHTN sIUP @ 36.3 weeks - severe features: SBP>160 x 2 - U pr/cr ratio of 0.56, LFTs, platelets wnl. - vertex on bedside sono prior to induction - betamethasone given x2 - continue to monitor BP and symptoms closely, tx for > 160/110 - SVE @ 1930 closed/thick/high; cat 1 FHT 140/mod/+accels - cytotec #1 @ 2045 - SVE @ 0045 cl/th/h/posterior/moderately firm, Jasso increased 0 to 1; cat 1 FHT, cytotec #2 placed - SVE @ 0445 FT/25/-3/mid position/moderately firm, Jasso 2; cat 1 FHT - SVE @ 0830 1/50/-3/ mid-position/soft, Jasso 5 ; FHT Cat 1 - SVE @ 1215 1/50/-3, FHT: Cat 1, cytotec #3 placed - SVE @ 1630 1/50/-2, FHT Cat 1; Jasso 6, Balloon placed at 1645 - mag started @ 1630 on 09/20, continue q4h mag checks - SVE @ 2030 1/50/-2, FHT: Cat 1, baseline 130, Balloon in place, pit started, cx q 3-4 min - SVE @ 0020 2/75/-2, FHT: Cat 1, baseline 130, balloon in place, pit at 10, cx q 3-4 min - SVE @ 0430 2/75/-2, FHT: Cat 1, baseline 120, balloon removed due to [address], pit at 16, cx q 2-3 min - SVE @ 0830 3/50/-3, FHT: Cat 1, 125/mod kalli/ +accel. AROM- clear fluid - SVE @ 1100 3/70/-2, IUPC placed - SVE @ 1500 4/80/-2, FHT: Cat 1, ctx q3-4min, MVU 160, pit @ 22u, mag @ 1g/hr - SVE @ 1900 2, FHT: Cat 1, ctx q2-3 min; pit @ 26 - SVE @ 2300 , FHT: Cat 1, ctx q2-3 min, pit at 30 with inadequate MVUs, pit break - SVE @ 0100 , FHT: Cat 1, pit was restarted around 0000 - SVE @ 0300 , FHT: Cat 1, ctx q5-6 min, pit at 14 with inadequate MVUs - SVE @ 0500 , FHT: Cat 1, ctx q5-6 min, pit 18, inadequate MVUs of 90, consider - SVE @ 0700 , FHT: Cat 1, ctx q8min, will proceed to C section due to arrest of labor, pit stopped, consent obtained - FHT: had some periods of minimal variability, likely due to sleep cycle vs hypoglycemia 2/2 mom not eating due to prolonged labor GBS unknown, adequately treated - GBS collected, will not result prior to induction - Penicillin given A1GDM - A1c 5.8 - FBG at home 82-98 - glucose goal 70-126, humalog for treatment - q4hr accuchecks, pt receiving steroids AMA, Obesity - aware Addendum - Attending - Attending Attestation Date/Time: 09/22/20 1009 I personally evaluated the patient and discussed the management with the team prior to . I agree with the History, Examination, Assessment and Plan documented above with any addition or exceptions noted below. Patient has been induced for ~ 60 hours with 36 hours on pitocin and 24 hours ruptured. She dilated to 6-7 and has not made significant change despite pitocin. We discussed options and she desires to proceed with .
[2020-09-22] MEDS ORDERED: Bicitra 30 ML UDCUP PO PRN (07:21)
[2020-09-22] MEDS ORDERED: Famotidine/PF 20 mg/2ml Vial SLOW IVP PRN (07:21)
[2020-09-22] MEDS ORDERED: Lidocaine 1% (PF) 30 ML VIAL SC PRN (07:23)
[2020-09-22] MEDS: hydrALAZINE 20 MG/ML VIAL SLOW IVP PRN (07:28)
[2020-09-22] MEDS ORDERED: CEFAZOLIN 2 GM in Premix Bag 1 BAG IVPB SCH (07:30)
[2020-09-22] MEDS ORDERED: Azithromycin 500 MG in Sodium Chloride 0.9% 250 ML 250 ML IVPB SCH (07:30)
[2020-09-22] MEDS ORDERED: PHENYLEPHRINE-NS 100 MCG/ML 10 ML SYRINGE ONE (07:34)
[2020-09-22] MEDS ORDERED: Ondansetron PF 4 MG/2 ML Vial ONE (07:34)
[2020-09-22] MEDS ORDERED: ePHEDrine 50 MG/ML VIAL ONE (07:34)
[2020-09-22] MEDS ORDERED: Oxytocin 10 UNITS/ML VIAL ONE ×2 (07:34→09:01)
[2020-09-22] MEDS ORDERED: Sodium Chloride 0.9% 10 ML ONE (07:35)
[2020-09-22] MEDS ORDERED: Lidocaine 2% 10 ML INJ ONE (07:35)
[2020-09-22] MEDS ORDERED: Misoprostol 200 MCG TAB ONE ×2 (07:57→08:14)
[2020-09-22] MEDS ORDERED: Naloxone HCl 0.4 mg/ml Vial IV PRN (08:32)
[2020-09-22] MEDS ORDERED: Promethazine HCl 25 MG SUPP PR PRN (08:32)
[2020-09-22] MEDS ORDERED: Naloxone HCl 0.4 mg/ml Vial IVP PRN ×2 (08:32)
[2020-09-22] MEDS ORDERED: HYDROmorphone 2 MG/ML VIAL SLOW IVP PRN (08:32)
[2020-09-22] MEDS ORDERED: Promethazine HCl 25 MG/ML VIAL IM PRN (08:32)
[2020-09-22] MEDS ORDERED: L&D-Morphine 4 MG/ML VIAL SLOW IVP PRN (08:32)
[2020-09-22] MEDS ORDERED: Meperidine HCl/PF 25 MG/ML VIAL SLOW IVP PRN (08:32)
[2020-09-22] MEDS ORDERED: Ketorolac Tromethamine 30 MG/ML VIAL IVP PRN (08:32)
[2020-09-22] MEDS ORDERED: diphenhydrAMINE 50 MG/ML VIAL IVP PRN (08:32)
[2020-09-22] MEDS ORDERED: Ondansetron PF 4 MG/2 ML Vial IVP PRN (08:32)
[2020-09-22] MEDS ORDERED: Ondansetron HCl/PF 4 MG/2 ML Vial IVP PRN (08:32)
[2020-09-22] MEDS ORDERED: Communication Order-Pharmacy FS SCH (08:45)
[2020-09-22] MEDS ORDERED: Ketorolac Tromethamine 30 MG/ML VIAL IVP SCH (08:45)
[2020-09-22] MEDS ORDERED: Fentanyl 100 MCG/2 ML VIAL ONE (08:46)
[2020-09-22] MEDS ORDERED: Promethazine HCl 25 MG/ML VIAL ONE (08:46)
[2020-09-22] MEDS ORDERED: Morphine PF 10 MG/10 ML VIAL ONE (08:58)
[2020-09-22] MEDS ORDERED: Morphine 4 MG/ML VIAL ONE (08:58)
--- NOTE | 2020-09-22 09:45 | PDOC.OPDEL ---
OB Operative/Delivery Note Delivery Dr/Surgeon: Toni/Damon/Dom Pre-Delivery Diagnosis: arrest of dilation Procedure/Post Delivery Dx: primary low transverse CS Weeks gestation: 36 (36.4 weeks) Anesthesia: epidural - Findings A Sex: male Weight: 2.598 kg - 1 min: 8 - 5 min: 9 - Additional Findings/Plan Placenta delivered: manual removal findings: low transverse hysterotomy without extension, normal uterus (subcentimeter fibroid on anterior outer surface), normal tubes, normal ovaries Estimated blood loss: 494 mL Compilations/Other Findings: Date of Procedure: 09/22/2020, 0800 Attending Primary Surgeon: Paulino Fernandes MD Resident Primary Surgeons: Daja Muñoz DO: Tash Jose MD Procedure: Repeat low transverse caesarean section Preoperative Diagnosis: 1) Pre-Term intrauterine 2) Pre-Eclampsia superimposed on gHTN 3) A1GDM 4) GBS unknown 5) AMA 6) Obesity Postoperative Diagnosis: 1) Pre-Term intrauterine , now delivered 2) Pre-Eclampsia superimposed on gHTN 3) A1GDM 4) GBS unknown 5) AMA 6) Obesity 7) Hematoma noted on superior right lateral aspect of hysterotomy closure 8) Subcentimeter fibroid on outer anterior aspect of the uterus Anesthesia: epidural Indications: The patient is a 35 year old female at 36.4 weeks gestation who presents for a primary for arrest of dilation. Procedure in Detail: After risks, benefits, and alternatives were explained to the patient, she gave informed consent. Pre-operative antibiotics included Cefazolin 2 gram IV and Azithromycin 500 mg. The patient was taken to the operating room and previously established epidural anesthesia was bolused. She was placed in the supine position with a left tilt and prepped and draped in usual sterile fashion. A Pfannenstiel incision was made with a scalpel and carried down to the level of the fascia which was sharply nicked. The fascial cut was extended bilaterally with Rodriguez sissors. The inferior and superior edges of the cut fascial edges were elevated with Devon clamps and the underlying rectus muscles were sharply and bluntly dissected free. The recti were divided digitally and retracted manually. The peritoneum was entered bluntly and retracted manually. Reji-O retractor was placed. A wet lap was placed to retract protruding bowel. A low transverse incision was made with the scalpel and the uterus was entered in the midline with the scalpel. Clear fluid was seen. The hysterotomy was extended manually. The was noted to be vertex and was easily delivered by fundal pressure. Mouth and nares were bulb suctioned. Cord clamped and cut and grossly normal male infant was handed to waiting nurse. Cord blood was obtained and sent for blood type. Placenta was manually extracted, found to be intact with 3 vessel cord and sent for pathology. The uterus was externalized and the endometrium was curetted with a dry lap. The uterus was closed with a running locking 1-Monocryl suture. Following this hemostasis was noted. A small hematoma was noted on the superior right lateral aspect of the hysterotomy closure and was stable during repair. A subcentimeter fibroid was also noted on the anterior outer surface of the uterus. The uterus was internalized and the hysterotomy was again noted to be hemostatic. A button-hole in the fascia was repaired in a figure of 8 fashion with 0-Vicryl suture. The fascia was then closed with a running non-locking PDS suture. The subcutaneous tissue was irrigated and there were no bleeders. The subcutaneous tissue was then closed with 2-0 Plain gut suture in simple interrupted fashion. The skin was closed with running nonlocking, 4-0 Monocryl suture and Dermabond placed. Then a pressure dressing was placed. All counts were correct. The patient tolerated the procedure well and was taken to the recovery room in stable condition. Quantitative Blood Loss: 494 ml Complications: None Specimens: Cord blood sent to lab for blood type Findings: Grossly normal male with Apgars of 8 and 9. Grossly normal placenta with 3 vessel cord, sent for pathology. Drains: Amin to gravity draining clear urine Post delivery plan: recovery in LICU (on mag) Addendum - Attending - Attending Attestation Date/Time: 09/22/20 1019 I was present and scrubbed for all critical portions. Pre and post securing the Reji-O we ensured there was no bowel or omentum underneath. Indication: failure to progress/arrest of labor. On pitocin and in active labor without significant change from 6-7 cm for at least 9 hours.
[2020-09-22] MEDS: Carboprost 250 MCG/ML AMP IM PRN ×2 (10:54→11:57)
[2020-09-22] MEDS ORDERED: Tranexamic Acid 1,000 MG/10 ML VIAL ONE (10:54)
--- NOTE | 2020-09-22 11:12 | PDOC.BPN ---
- Brief Progress Note Called for bleeding in the PACU. Mother HDS, uterus firm @ umbilicus. Nonclotted blood on chucks. Measured and the last two ~ 500g which puts her total > 1000 for qBL. Will give hemabate and TXA. Several severe range pressures so will hold on methergine for now. During surgery good hemostasis was achieved and corners controlled. Hematoma was nonexpanding. She was slow to firm in the OR, consistent with her prolonged labor and exposure to pitocin. Repeat CBC and coags. If continued bleeding T&C blood products.
[2020-09-22] MEDS ORDERED: Misoprostol 200 MCG TAB PR SCH (11:30)
[2020-09-22] MEDS ORDERED: Tranexamic Acid 1,000 MG/10 ML VIAL IVP SCH (11:30)
[2020-09-22] MEDS ORDERED: Adacel (T-DAP) 0.5 ML SYRINGE IM ONE (11:36)
[2020-09-22] MEDS ORDERED: hydrALAZINE 20 MG/ML VIAL SLOW IVP PRN (11:36)
[2020-09-22] MEDS ORDERED: Lanolin Ointment 7 GM TUBE TOP PRN (11:36)
[2020-09-22 11:53] LABS: Hemoglobin 10.5 g/dL (12.0-16.0); Mean Corpuscular HGB CONC 34.4 g/dL (32.0-36.0); Mean Corpuscular Hemoglobin 31.4 pg (27.0-31.0); Mean Corpuscular Volume 91.1 fL (78.0-98.0); Mean Platelet Volume 9.7 fL (7.4-10.4); Platelet Count 212 thou/uL (130-400); Prothrombin Time 13.3 sec (12.0-14.7); RBC Distribution Width 12.2 % (11.5-14.5); Red Blood Cell (RBC) Count 3.34 mill/uL (4.20-5.40); White Blood Cell (WBC) Count 21.5 thou/uL (4.8-10.8)
[2020-09-22 11:54] LABS: PTT 29.8 sec (22.9-36.1)
[2020-09-22] MEDS ORDERED: Docusate Calcium (SURFAK) 240 MG CAP PO SCH (12:00)
[2020-09-22] MEDS ORDERED: Diphenoxylate HCl/Atropine Tablet PO PRN (12:00)
[2020-09-22] MEDS ORDERED: Methylergonovine 0.2 MG/ML VIAL IVP SCH (12:00)
[2020-09-22 12:14] LABS: Band 8 % (5-11); Lymphocytes 13 % (21-51); MDiff Complete? YES; Monocytes 5 % (0-10); Neutrophil 73 % (42-75); Platelet Morphology Comment Appears Adequate; Polychromasia SLIGHT = 2-3 cells (100X) (0-2/hpf); Reactive Lymphocytes 1 % (0-10)
[2020-09-22] MEDS ORDERED: Carboprost 250 MCG/ML AMP IM SCH (12:15)
--- NOTE | 2020-09-22 13:05 | PDOC.BPN ---
- Brief Progress Note at 36.4 wga s/p pLTCS for arrest of labor, preE with severe features 4 hour post op check Gen-Patient doing well just tired. Pain controlled Abd- Appropriate tenderness to palpation, normoactive B.S., pressure dressing in place, uterus firm and below umbilicus Extrem- No swelling, ROM x4 UO- >30cc/hr, no blood present Due to continued bleeding (see prior note). 1g TXA, 2 doses of hemabate & 800mcg cytotec given. Bleeding has improved Mag check Gen- Denies LAZO, vision changes, CP, SOB PE- Patient alert & oriented. . 2+ reflexes. RRR, no murmurs. CTAB. VS- BPs 140-150s- no severe ranges. UO >30cc/hr, snow in place A/P: Recheck in 4 hours
[2020-09-22] MEDS ORDERED: Labetalol HCl 100 MG/20 ML VIAL ONE (16:31)
--- NOTE | 2020-09-22 16:52 | PDOC.BPN ---
- Brief Progress Note Mag check Gen- Denies LAZO, vision changes, CP, SOB. Feeling flushed. VS- Two severe ranges, given 5mg of hydralazine. Another severe BP, given 10mg labetalol with improvement of pressures. UO >30cc/hr with 200cc this past hour PE- Patient alert & oriented. 2+ reflexes. RRR, no murmurs. CTAB. A/P: -Will check magnesium level for toxicity with sxs & since patient has been on MgS for quite some time -Mag check at 2130
[2020-09-22] MEDS ORDERED: Labetalol HCl 100 MG/20 ML VIAL SLOW IVP SCH (17:00)
--- NOTE | 2020-09-22 20:46 | PDOC.BPN ---
- Brief Progress Note S: Denies CP, SOB, LAZO, N/V; Endorses lower abdominal pain with movement 2/2 to O: Vitals - Pressures ranging from 120-140s/50-70s; no severe range pressures since 1630 Urine output: 1130 cc over last 4 hours General Appearance: Sitting up comfortably in bed Cardiovascular: RRR Lungs: CTAB Abdomen: ATTP Extremities: 2+ DTRs Labs: Mg - 4.8; although therapeutic based on UTD guidlines, hospital L&D guidelines consider therapeutic levels between 5-8, mag increased by .5 A/P: 35 year old G1 now P1 s/p pLTCS on 09/22, on MgSO4 Preeclampsia No signs/symptoms of Mg toxicity. Will continue Mag until tomorrow 24 hours post delivery.
--- NOTE | 2020-09-23 01:31 | PDOC.BPN ---
- Brief Progress Note S: Denies CP, SOB, LAZO, N/V; sleeping comfortably in bed O: Vitals - Pressures ranging from 130s-150s/50-80s; no severe range pressures over last 4 hours Urine output: >1000 cc over last 4 hours General Appearance: sleeping comfortably, easily awoken Cardiovascular: RRR Lungs: CTAB Abdomen: ATTP Extremities: 2+ DTRs A/P: 35 year old G1 now P1 s/p pLTCS on 09/22, on MgSO4 Preeclampsia No signs/symptoms of Mg toxicity. Will continue Mag until tomorrow 24 hours post delivery.
--- NOTE | 2020-09-23 04:24 | PDOC.BPN ---
<Audra Byrd - Last Filed: 09/23/20 04:22> - Brief Progress Note S: Denies CP, SOB, LAZO, N/V; sleeping comfortably in bed O: Vitals - Pressures persistently in the 150s/80s, no severes Urine output: >800 cc over last 4 hours General Appearance: sleeping comfortably, easily awoken Cardiovascular: RRR Lungs: CTAB Abdomen: ATTP Extremities: 2+ DTRs A/P: 35 year old G1 now P1 s/p pLTCS on 09/22, on MgSO4 Preeclampsia No signs/symptoms of Mg toxicity. Will continue Mag until tomorrow 24 hours post delivery. Will start patient on PO labetalol 100 mg BID due to persistently elevated BPs <Judie Horan - Last Filed: 09/24/20 11:05> - Brief Progress Note Atttending Note: Patient doing well. BP controlled and UOP appropriate. Still with edema on exam. Will give Lasix later today. Ramesh
[2020-09-23 08:03] LABS: Hemoglobin 9.7 g/dL (12.0-16.0); Mean Corpuscular HGB CONC 33.9 g/dL (32.0-36.0); Mean Corpuscular Hemoglobin 30.6 pg (27.0-31.0); Mean Corpuscular Volume 90.4 fL (78.0-98.0); Mean Platelet Volume 9.4 fL (7.4-10.4); Platelet Count 208 thou/uL (130-400); RBC Distribution Width 12.4 % (11.5-14.5); Red Blood Cell (RBC) Count 3.17 mill/uL (4.20-5.40); White Blood Cell (WBC) Count 13.8 thou/uL (4.8-10.8)
--- NOTE | 2020-09-23 08:18 | PDOC.BPN ---
- Brief Progress Note S: Denies CP, SOB, LAZO, N/V; sleeping comfortably in bed O: Vitals - Pressures persistently in the 150/80s with one severe range pressure which quickly came back down to the 150s Urine output: ~150cc/hr General Appearance: sleeping comfortably, easily awoken Cardiovascular: RRR Lungs: CTAB Abdomen: ATTP Extremities: 2+ DTRs A/P: 35 year old G1 now P1 s/p pLTCS on 09/22, on MgSO4 Preeclampsia No signs/symptoms of Mg toxicity. Plan to d/c MgS at 0900 today Will start patient on PO labetalol 100 mg BID due to persistently elevated BPs
--- NOTE | 2020-09-23 08:20 | PDOC.PP ---
Post Progress Note Post Day #: 1 Subjective: Doing well. Pain present but doesn't bother her too much. Has been on MgS for preeclampsia with severe features so hasn't been able to ambulate. No other concerns at this time. PO intake tolerated: yes Flatus: yes Ambulation: no Weight Weight 115.212 kg - Physical Examination General: NAD Cardiovascular: RRR Respiratory: clear to auscultation bilaterally, non-labored breathing Abdominal: appropriately TTP Fundus firm & at: below umbilicus Extremities: negative homans (B) Deviation from normal: pressure dressing in place Neurological: no gross focal deficits Psychiatric: A&Ox3, normal affect Result Diagrams: 09/23/20 07:46 09/19/20 17:22 Additional Labs: Post Labs Hep Bs Antigen Non-Reactive S/CO (NonReactive) 09/19/20 20:50 Blood Type O POSITIVE 09/19/20 23:29 - Assessment/Plan 35 yo triaged for PIH workup and admitted for mIOL for preE with severe features. She is s/p pLTCS for failure to progress on 09/22. s/p pLTCS for failure to progress, POD 1 -Pain well controlled, IBP JOS EM -Continue pressure dressing -Continue routine care Preeclampsia with severe features -Has been on MgS for severe range BPs -Will complete 24 hour PP MgS course at 0900 today -Will start PO labetalol, suspect cHTN prior to -Monitor BPs today, adjust labetalol as needed PPH -QBL ~1000cc in total -s/p hemabate x2, cytotec 800mcg [place], and 1g TXA on 09/22 -Bleeding has much improved, suspect it was from residual clots as uterus is firm Anemia 2/2 blood loss -Hb 9.7 -Start oral iron -Continue monitoring for bleeding A1GDM - A1c 5.8 - No glucoses at this time -Will need 2hr OGTT 6 wks PP GBS unknown, adequately treated -MD aware AMA, Obesity - aware, will christian counselor on lifestyle modification dvt ppx: SCDs Fluids: MgS, LR Abx: None Addendum - Attending - Attending Attestation Date/Time: 09/23/20 1116 I personally evaluated the patient and discussed the management with Dr. Ibrahim I agree with the History, Examination, Assessment and Plan documented above with any addition or exceptions noted below. POD#1 Doing well. Pain controlled. Still edema on exam. Will give Lasix and monitor UOP closely. Start HCTZ for BP control if able to tolerate once daily dosing. Need to pick med that is on $4 list and is dosed daily. Would like to continue to BF. Having latch problems. No over the weekend. Information and education provided. Case management consulted due to FOB and excessive alcohol use in the hospital. Has not seen yet. UDS pending. Monitor UOP and BP closely. Will need weekly outpatient follow up x 3 wks. Then at 6 wks with DM screening and as determined by PCP after that. Unsure contraception at this time. Ramesh
[2020-09-23] MEDS ORDERED: Labetalol 100 MG TAB PO SCH (09:00)
[2020-09-23] MEDS ORDERED: hydrALAZINE 20 MG/ML VIAL SLOW IVP PRN (10:06)
[2020-09-23] MEDS ORDERED: diphenhydrAMINE 25 MG CAP PO PRN (10:06)
[2020-09-23] MEDS ORDERED: Enoxaparin Sodium 40 MG/0.4 ML SYRINGE SC SCH ×2 (10:15→10:45)
[2020-09-23] MEDS: Acetaminophen 325 MG TAB PO SCH ×3 (10:57→22:15)
[2020-09-23] MEDS: Docusate Calcium (SURFAK) 240 MG CAP PO SCH ×3 (10:57→21:30)
[2020-09-23] MEDS: Lactated Ringer's 1,000 ML IV SCH (10:58)
[2020-09-23] MEDS: Prenatal Vitamin 1 TAB PO SCH (11:30)
[2020-09-23] MEDS: Simethicone Chewable 80 MG TAB PO PRN ×2 (11:30→19:14)
[2020-09-23] MEDS: Polyethylene Glycol 3350 17 GM Packet PO SCH (11:31)
[2020-09-23] MEDS: HYDROcodone/Acetaminophen 5/325 mg Tablet PO PRN ×2 (11:33→19:13)
[2020-09-23] MEDS: Hydrochlorothiazide 25 MG TAB PO SCH (11:33)
[2020-09-23] MEDS ORDERED: Furosemide 20 MG/2 ML VIAL SLOW IVP SCH (13:30)
[2020-09-23] MEDS ORDERED: Sodium Chloride 0.9% 10 ML ONE (13:41)
[2020-09-23] MEDS ORDERED: Ibuprofen 800 MG TAB PO SCH (14:00)
[2020-09-23 14:31] LABS: Amphetamine Not Detected (NotDetected); Barbiturates Screen Not Detected (NotDetected); Benzodiazepine Screen Not Detected (NotDetected); Cocaine Metabolite Screen Not Detected (NotDetected); Medtox Control Line Valid? VALID (VALID); Medtox Reader # READER 4; Methadone Not Detected (NotDetected); Methamphetamine Not Detected (NotDetected); Opiate Screen Detected (NotDetected); Oxycodone Screen Not Detected (NotDetected); Phencyclidine (PCP) Not Detected (NotDetected); THC/Cannabinoid Screen Not Detected (NotDetected); Tricyclic Screen Not Detected (NotDetected)
[2020-09-23] MEDS: Ibuprofen 600 MG TAB PO SCH (22:15)
[2020-09-24] MEDS: Acetaminophen 325 MG TAB PO SCH ×2 (05:00→11:41)
[2020-09-24] MEDS: Ibuprofen 600 MG TAB PO SCH ×2 (05:04→13:54)
--- NOTE | 2020-09-24 06:29 | PDOC.PP ---
Post Progress Note Post Day #: 2 Subjective: No acute events overnight. Patient denies LAZO, vision changes, chest pain. Improvement in leg swelling. Pain controlled, able to walk around down hallway yesterday. PO intake tolerated: yes Flatus: yes Ambulation: yes Vital Signs (12 hours) Temp Pulse Resp BP BP Pulse Ox 09/24/20 05:00 98.3 F 77 18 124/60 09/23/20 23:45 98.0 F 84 18 127/70 09/23/20 19:45 98.6 F 88 18 131/70 97 Weight Weight 115.212 kg - Physical Examination General: NAD Cardiovascular: RRR Respiratory: clear to auscultation bilaterally, non-labored breathing Abdominal: no distention, appropriately TTP Deviation from normal: no edema Skin: CS incision dry & intact Neurological: no gross focal deficits Psychiatric: A&Ox3, normal affect Result Diagrams: 09/23/20 07:46 09/19/20 17:22 Additional Labs: Post Labs Hep Bs Antigen Non-Reactive S/CO (NonReactive) 09/19/20 20:50 Blood Type O POSITIVE 09/19/20 23:29 - Assessment/Plan 35 yo triaged for PIH workup and admitted for mIOL for preE with severe features. She is s/p pLTCS for failure to progress on 09/22. s/p pLTCS for failure to progress, POD 2 -Pain well controlled, IBP JOSE M and [place] PRN -Continue routine care -Bleeding improved Preeclampsia with severe features -MgS discontinued 09/23 at 0900, BPs stable after lasix x1 and initiation of HCTZ -Likely can d/c today PPH -QBL ~1000cc in total -s/p hemabate x2, cytotec 800mcg [place], and 1g TXA on 09/22 -Bleeding has much improved, suspect it was from residual clots as uterus is firm Anemia 2/2 blood loss -Hb 9.7 -Start oral iron -Continue monitoring for bleeding A1GDM - A1c 5.8 - No glucoses at this time -Will need 2hr OGTT 6 wks PP GBS unknown, adequately treated -MD aware AMA, Obesity - aware, will counselor aide on lifestyle modification dvt ppx: SCDs Fluids: SL Diet: HH Abx: None Addendum - Attending - Attending Attestation Date/Time: 09/24/20 3922 I personally evaluated the patient and discussed the management with Dr. Ibrahim I agree with the History, Examination, Assessment and Plan documented above with any addition or exceptions noted below. POD#2 Pain controlled. Incision healing well. No concerns for complications at this time. Ambulating. Lochia mild. Breast feeding but largely bottle feeding. BP controlled on current medication. Good UOP. Less edema today. Request early d/c if able. Has follow up on Friday. If BP remains good and no symptoms, ok to d/c late this afternoon. Ramesh
[2020-09-24] MEDS ORDERED: Ferrous Sulfate 325 MG TAB PO SCH (08:00)
[2020-09-24] MEDS ORDERED: Enoxaparin Sodium 40 MG/0.4 ML SYRINGE SC SCH (09:00)
[2020-09-24] MEDS: Hydrochlorothiazide 25 MG TAB PO SCH (09:33)
[2020-09-24] MEDS: Docusate Calcium (SURFAK) 240 MG CAP PO SCH (09:33)
[2020-09-24] MEDS: Prenatal Vitamin 1 TAB PO SCH (09:33)
[2020-09-24] MEDS: Polyethylene Glycol 3350 17 GM Packet PO SCH (09:33)
[2020-09-24] MEDS ORDERED: Furosemide 40 MG/4 ML VIAL SLOW IVP ONE (09:59)
[2020-09-24 12:25] VITALS: BP 137/84; TEMP 98.4
== END 2020-09-24 18:20 | disposition home or self-care (01) | DRG 787 ==
LOC: EDBD → L&D/OP 15:24 → L&D 19:54 → 3SW 09-23 11:26
PROVIDERS: ADMIT Emergency Medicine; ATTEND Emergency Medicine
PROC: 0U7C7ZZ Dilation of Cervix, Via Natural or Artificial Opening (ICD-10-PCS; 2020-09-20)
PROC: 10907ZC Drainage of Amniotic Fluid, Therapeutic from Products of Conception, Via Natural or Artificial Opening (ICD-10-PCS; 2020-09-21)
PROC: 3E033VJ Introduction of Other Hormone into Peripheral Vein, Percutaneous Approach (ICD-10-PCS; 2020-09-21)
PROC: 10D00Z1 Extraction of Products of Conception, Low, Open Approach (ICD-10-PCS; principal; 2020-09-22)
DX: O24.420 Gestational diabetes mellitus in childbirth, diet controlled (principal); O72.1 Other immediate postpartum hemorrhage; O13.4 Gestational [pregnancy-induced] hypertension without significant proteinuria, complicating childbirth; Z3A.36 36 weeks gestation of pregnancy; Z90.89 Acquired absence of other organs; O99.214 Obesity complicating childbirth; E66.9 Obesity, unspecified; O14.14 Severe pre-eclampsia complicating childbirth; Z20.828 Contact with and (suspected) exposure to other viral communicable diseases; Z37.0 Single live birth; O90.81 Anemia of the puerperium; D50.0 Iron deficiency anemia secondary to blood loss (chronic)
CPT/HCPCS: 36415; 36416; 51702; 76815; 76819; 80053; 80306; 82570; 83735; 84156; 85025; 85027; 85610; 85730; 86780; 86850; 86900; 86901; 87077; 87081; 87340; 87635; 88307; 99285; J0360; J0456; J0595; J0690; J0702; J1650; J1885; J1940; J2270; J2405; J2540; J2550; J2590; J3010; J3475; J3490; J7050; U0003